=== PATIENT | female | born 1975 | race American Indian/Alaskan Native ===

== ENCOUNTER 2016-07-12 14:57 | Outpatient (CLI) | payer OTHER ==
--- NOTE | 2016-07-12 16:32 | XRay Report ---
ROUTINE CHEST, TWO VIEWS: PA and lateral views demonstrate the heart and mediastinal contour to be of normal size and shape. The lungs are clear and fully expanded and the soft tissues and bony structures are normal. IMPRESSION: Normal study.
== END 2016-07-12 14:58 | disposition home or self-care (01) ==
LOC: XRAY 14:57
PROVIDERS: ATTEND Internal Medicine
DX: J40 Bronchitis, not specified as acute or chronic (principal)
CPT/HCPCS: 71020

== ENCOUNTER 2018-01-05 10:54 | Day surgery (SDC) | payer SELFPAY ==
[~2018-01-05 10:54] MED LIST: ANCEF/STERILE WATER 2 GM/20 ML IV NR; DILAUDID IV PRN; HEPARIN SUB-Q NR; ZOFRAN IV PRN
[2018-01-05] MEDS ORDERED: LACTATED RINGERS 1,000 ML IV SCH (11:00)
[2018-01-05] MEDS ORDERED: VERSED IV NR (11:00)
--- NOTE | 2018-01-05 11:55 | Anesthesia Consultation ---
Anesthesia Consult and Med Hx Date of service: 01/05/18 - Airway Anesthetic Teeth Evaluation: Good ROM Head & Neck: Adequate Mental/Hyoid Distance: Adequate Mallampati Class: Class II Intubation Access Assessment: Probably Good - Pulmonary Exam CTA: Yes - Cardiac Exam Cardiac Exam: RRR Anesthetic Concerns: hist ory of [place] 10 years ago/asymptomatic - Pre-Operative Health Status ASA Pre-Surgery Classification: ASA2 Proposed Anesthetic Plan: General - Pulmonary Hx Asthma: Yes ( A CHILD) - Cardiovascular System Hx Hypertension: Yes (2007 [place] 10 years ago symptomatic) Hx Heart Murmur: Yes - Central Nervous System Hx Neuromuscular Disorder: No (migraine headeaches) - Additional Comments Anesthesia Medical History Comments: sleep apnea /snores/ never tested
--- NOTE | 2018-01-05 11:56 | Anesthesia Day of Surgery ---
Anesthesia Day of Surgery - Day of Surgery Patient Examined: Yes Patient H&P Reviewed: Yes Patient is NPO: Yes Beta Blockers: No Cardiac Clearance: No Pulmonary Clearance: No
[2018-01-05] MEDS ORDERED: ZEMURON IV ONE ×2 (11:59→14:15)
[2018-01-05] MEDS ORDERED: SUBLIMAZE ONE ×3 (11:59→14:16)
[2018-01-05] MEDS ORDERED: ZOFRAN ONE (11:59)
[2018-01-05] MEDS ORDERED: REGLAN ONE (11:59)
[2018-01-05] MEDS ORDERED: DIPRIVAN 10 MG/ML IV ONE (11:59)
[2018-01-05] MEDS ORDERED: XYLOCAINE MPF 2% ONE (11:59)
[2018-01-05] MEDS ORDERED: NACL 0.9% 1000 ML 1,000 ML IV SCH (12:00)
[2018-01-05] MEDS ORDERED: NACL BACTERIOSTATIC INFILTRATI ONE (12:07)
[2018-01-05 12:52] LABS: BUN/Creatinine Ratio 14; Blood Urea Nitrogen 11 mg/dL (7-17); Calcium 9.7 mg/dL (8.4-10.2); Hemolysis Index 55
[2018-01-05] MEDS ORDERED: VERSED ONE (12:54)
[2018-01-05] MEDS ORDERED: MARCAINE 0.5% INFILTRATI ONE ×2 (13:08→13:33)
[2018-01-05] MEDS ORDERED: XYLOCAINE 1% 20 mL ONE (13:08)
[2018-01-05] MEDS ORDERED: LACTATED RINGERS 1,000 ML ONE (13:08)
[2018-01-05] MEDS ORDERED: XYLOCAINE 1% 20 mL INFILTRATI ONE (13:33)
[2018-01-05] MEDS ORDERED: BLOXIVERZ ONE (15:24)
[2018-01-05] MEDS ORDERED: ROBINUL ONE (15:24)
[2018-01-05] MEDS ORDERED: TORADOL ONE (15:26)
--- NOTE | 2018-01-05 15:47 | Post Operative Note ---
Pre-op diagnosis: Umbilical and ventral hernia Post-op diagnosis: same Findings: Large ventral hernia with incarcerated bowel Procedure: Laparoscopic repair of umbilical and ventral hernia with incarcerated bowel. Anesthesia: GETA Surgeon: SWATHI ALMAZAN Estimated blood loss: minimal Pathology: none Specimen disposition: to lab Condition: stable Disposition: PACU
[2018-01-05] MEDS: DILAUDID IV PRN ×4 (15:56→16:49)
[2018-01-05] MEDS ORDERED: PERCOCET 5/325 PO PRN (15:58)
--- NOTE | 2018-01-05 16:11 | Post Anesthesia Evaluation ---
- Post Anesthesia Evaluation Patient Participated: Yes Airway Patent: Yes Stable Respiratory Function: Yes Nausea/Vomiting: No Temp > 96.8F: Yes Pain Manageable: Yes Adequeate Hydration: Yes Anesthesia Complications: No Block Receding Appropriately: No Patient on Ventilator: No
[2018-01-05 18:22] VITALS: BP 110/59
--- NOTE | 2018-01-05 20:44 | Operative Report ---
PREOPERATIVE DIAGNOSES: Umbilical hernia and ventral hernia. POSTOPERATIVE DIAGNOSES: Incarcerated ventral hernia and reducible umbilical hernia. PROCEDURE: Laparoscopic repair of umbilical and ventral hernias with mesh. ATTENDING SURGEON: Dr. Lees. INSPECTOR ASSEMBLIES AND INSTALLATIONS: None. ESTIMATED BLOOD LOSS: Minimal. SPECIMENS: Hernia sac. IMPLANTS: Parietex 20 x 15 cm mesh, reference number is [id number], lot [id number], expiration date is 04/25/2019. INDICATIONS FOR PROCEDURE: The patient is a 43-year-old female patient who presented with a symptomatic ventral hernia and an enlarging bulge after her last . This has been enlarging for several years now and the patient would like to fix that. I explained the full procedure to the patient as well as all the possible complications including, but not limited to recurrence of the hernia, infection of the wounds or the mesh, bleeding and need for further surgery. She accepted these terms and signed informed consent. PROCEDURE IN DETAIL: The patient was taken back to the OR where she was placed supine on the operating room table. Bilateral lower extremity compression devices were placed and the abdomen was prepped as per usual sterile fashion. Once the prepping and draping was done, we proceeded to take a timeout to verify the correct patient, the correct procedure and the correct site. Once everybody in the room was in agreement, we began the procedure by making a left upper quadrant incision and placing a Veress needle into the abdomen, getting insufflation ____ mmHg. At this point, a blunt trocar was inserted using the Optiview technique and a diagnostic laparoscopy was performed. At the midline, a loop of bowel was seen to be entering the ventral hernia and a smaller umbilical hernia was seen. Further ____ to that ventral hernia, I just mentioned. At this point, two other trocars were placed, a 10-mm port in the left lower quadrant and a 5-mm port in the lateral left abdomen. Once this was done, we proceeded to begin dissecting and reducing the ventral hernia. This was done with a combination of electrocautery and blunt dissection. We taking care to not injure any of the bowel. Once it was completely reduced, we turned our attention to the umbilical region. A reducible hernia was seen, mainly containing fat. This was reduced in its entirety and at this point, we proceeded to clear the anterior abdominal wall from any tissues that might prevent adequate positioning of the mesh. Once this was done, we proceeded to introduce 20 x 15 cm Parietex mesh. This was done through the 10-mm port. Once this had been done, we proceeded to make several small incisions in the abdomen through which a Prolene suture that had already been tied to all 4 corners of the mesh to be retrieved using the transfascial suture passer. This was done again in all four corners of the mesh as well as in the middle of the mesh in order to better assess the position of the mesh. All four corners in the middle of the mesh were retrieved with the transfascial suture and this in turn held the mesh in place. Once this had been done, we proceeded to use the ProTacker to further place the mesh in approximation with the anterior abdominal wall. Please note that prior to placing the mesh, we did close both hernias, primarily using Ethibond and the transfascial suture passer. Again, after closing the hernias primarily, we used the technique described above to place the mesh. A ProTacker was used to held the mesh as stated above and once we were satisfied with the position of the mesh, we proceeded to use a transfascial suture and a 0 Vicryl to close the left lower quadrant 10-mm port site. After this was done, we proceeded to remove the other trocars under direct visualization to ensure that no bleeding occurred and the CO2 was then taken out of the abdomen. We proceeded to then close the skin incision with 4-0 Vicryl and skin glue and we placed sterile dressings on the umbilicus and an abdominal binder to prevent seroma formation. The patient tolerated the procedure well and was sent to the PACU unit for further recovery. She will then be sent home. JOB# [id number] ZACHERY/NAIF
== END 2018-01-05 18:00 | disposition home or self-care (01) ==
LOC: OR 10:54
PROVIDERS: ATTEND Surgery
DX: K43.6 Other and unspecified ventral hernia with obstruction, without gangrene (principal); K42.9 Umbilical hernia without obstruction or gangrene; J45.909 Unspecified asthma, uncomplicated; I10 Essential (primary) hypertension; G43.909 Migraine, unspecified, not intractable, without status migrainosus
CPT/HCPCS: 36415; 49653; 80048; 81025; 88302; C1781; J0690; J1170; J1644; J1885; J2250; J2405; J2704; J2710; J2765; J3010; J7120